=== PATIENT | male | born 1955 | race Caucasian/White ===

== ENCOUNTER 2018-03-24 18:37 | Inpatient (IN) ==
[2018-03-24] MEDS ORDERED: SODIUM CHLORIDE 0.9% 1,000 ML IV STA (19:26)
[2018-03-24] MEDS ORDERED: methylPREDNISolone SOD SUC 125 MG/2 ML VIAL IV STA (19:26)
[2018-03-24] MEDS ORDERED: ALBUTEROL/IPRATROPIUM 3 ML NEB RESP TX STA (19:26)
[2018-03-24 20:16] LABS: Basophils # 0.1 10*3/uL (0.0-0.2); Basophils % 0.9 % (0.0-0.8); Eosinophils # 0.1 10*3/uL (0.0-0.87); Eosinophils % 1.3 % (0.00-10.9); Hematocrit 46.9 VOL% (42.0-52.0); Hemoglobin 16.5 GM/DL (14.0-18.0); Immature Granulocytes % 0.4 %; Immature Granulocytes Absolute 0.03 #; Lymphocytes % 28.6 % (21.2-54.2); Mean Corpuscular HGB Conc 35.2 GM/DL (32-36); Mean Corpuscular Hemoglobin 34 PG (27-34); Mean Corpuscular Volume 97.3 FL (87-102); Mean Platelet Volume 9.5 FL (9.6-12.0); Monocytes # 0.4 10*3/uL (0.11-0.8); Monocytes % 5.5 % (1.7-12.7); Neutrophils # 4.3 10*3/uL (1.4-7.4); Neutrophils % 63.3 % (38.7-73.9); Platelet Count 211 T/CUMM (130-400); Red Blood Count 4.82 MC/CUMM (3.8-5.5); Red Cell Distribution Width 15.8 % (9.3-17.3); White Blood Count 6.9 T/CUMM (4-12)
[2018-03-24 20:29] LABS: INR 0.9; PT Patient Result 9.9 SECS
[2018-03-24 20:43] LABS: Albumin 3.4 G/DL (3.4-5.0); Bilirubin,Total 1.3 MG/DL (0.2-1.0); Calcium 8.9 MG/DL (8.5-10.1); Osmolality,Calculated 282.8 MOS/KG (273-304); Potassium 4.2 MMOL/L (3.5-5.1); Total Protein 6.7 G/DL (6.4-8.3)
[2018-03-24] MEDS ORDERED: IBUPROFEN 100 MG/5 ML UDCUP PO STA (21:56)
[2018-03-24 21:57] LABS: Apearance,Urine CLEAR (Clear); Bilirubin,Urine Negative (Negative); Blood, Urine Small mg/dL (Negative); Glucose,Urine (UA) Negative (Negative); Ketones,Urine Negative (Negative); Mucus,Urine Occasional /LPF (Occasional); Nitrite,Urine Negative (Negative); Protein,Urine Negative; RBC,Urine <1 /HPF (0-4); Urine Color Yellow (Yellow); Urine Specific Gravity 1.006 (1.001-1.035); Urine Urobilinogen < 2.0 EU/DL (0.2-1.0); WBC,Urine <1 /HPF (0-6)
[2018-03-24 22:05] LABS: Barbiturates Screen,Urine Negative (Negative); Benzodiazepines Screen,Urine Negative (Negative); Cannabinoid Screen,Urine Negative (Negative); Opiate Screen,Urine Negative (Negative); Phencyclidine Screen,Urine Negative (Negative)
[2018-03-24] MEDS ORDERED: ONDANSETRON 4 MG/2 ML VIAL IV PRN (22:30)
[2018-03-24] MEDS ORDERED: LACTULOSE 20 GM/30 ML UDCUP PO PRN (22:30)
[2018-03-24] MEDS ORDERED: MORPHINE 4 MG/1 ML VIAL IV PRN (22:30)
[2018-03-24] MEDS ORDERED: DEXTROSE 50% 25 GM/50 ML VIAL IV PRN (22:48)
[2018-03-24 22:52] LABS: Risk Ratio 3.89; VLDL CHOLESTEROL 26.2 MG/DL
[2018-03-24 22:57] LABS: ABG Base Excess -3.9 MMOL/L (-2.5-2.5); ABG HCO3 21.1 MMOL/L (20-26); ABG Oxygen Saturation 92.1 % (95-100); ABG PCO2 38.8 MM HG (35-48); ABG PH 7.349 (7.35-7.45); ABG PO2 66.3 MM HG (80-95); ABG TCO2 18.2 MMOL/L (23-27)
[2018-03-25] MEDS: LORazepam 2 MG/1 ML VIAL IV PRN ×3 (00:25→21:25)
[2018-03-25] MEDS: SODIUM CHLORIDE 0.9% 1,000 ML IV SCH ×2 (00:25→12:35)
[2018-03-25] MEDS: diphenhydrAMINE CAP 25 MG CAPSULE PO PRN ×2 (00:26→21:24)
[2018-03-25 07:01] LABS: Hematocrit 42.5 VOL% (42.0-52.0); Hemoglobin 14.9 GM/DL (14.0-18.0); Immature Granulocytes % 0.5 %; Immature Granulocytes Absolute 0.02 #; Lymphocytes # 0.4 10*3/uL (1.4-4.0); Lymphocytes % 10.3 % (21.2-54.2); Mean Corpuscular HGB Conc 35.1 GM/DL (32-36); Mean Corpuscular Hemoglobin 34 PG (27-34); Mean Corpuscular Volume 97.5 FL (87-102); Mean Platelet Volume 9.3 FL (9.6-12.0); Monocytes % 0.7 % (1.7-12.7); Neutrophils # 3.8 10*3/uL (1.4-7.4); Neutrophils % 88.5 % (38.7-73.9); Platelet Count 193 T/CUMM (130-400); Red Blood Count 4.36 MC/CUMM (3.8-5.5); Red Cell Distribution Width 15.6 % (9.3-17.3); White Blood Count 4.3 T/CUMM (4-12)
[2018-03-25 07:19] LABS: Albumin 2.8 G/DL (3.4-5.0); Bilirubin,Total 1.7 MG/DL (0.2-1.0); Calcium 8.3 MG/DL (8.5-10.1); Osmolality,Calculated 286.5 MOS/KG (273-304); Potassium 4.2 MMOL/L (3.5-5.1)
[2018-03-25] MEDS: ALBUTEROL/IPRATROPIUM 3 ML NEB RESP TX PRN ×2 (08:38→21:30)
[2018-03-25] MEDS ORDERED: ALBUTEROL 2.5 MG/3 ML NEB RESP TX PRN (09:10)
[2018-03-25] MEDS: FOLIC ACID 1 MG TABLET PO SCH ×2 (09:30→21:24)
[2018-03-25] MEDS: chlordiazePOXIDE 10 MG CAPSULE PO SCH ×3 (09:30→21:24)
[2018-03-25] MEDS: PANTOPRAZOLE 40 MG VIAL IV SCH ×2 (09:35→21:25)
[2018-03-25] MEDS: cefTRIAXone 1,000 MG in SYRINGE 1 EACH IV SCH (10:46)
[2018-03-25] MEDS: AZITHROMYCIN INJ 500 MG in SODIUM CHLORIDE 0.9% 250 ML IV SCH (10:47)
[2018-03-25] MEDS: ASPIRIN EC 81 MG TABLET PO SCH (12:05)
[2018-03-25] MEDS: NICOTINE 21 MG/24 HR PATCH TRANSDERM PRN (13:45)
[2018-03-25] MEDS: BENZONATATE 100 MG CAPSULE PO SCH ×2 (15:07→21:24)
[2018-03-25] MEDS ORDERED: PRAVASTATIN 20 MG TABLET PO SCH (21:00)
[2018-03-25] MEDS ORDERED: ALPRAZolam 0.25 MG TABLET PO SCH (21:00)
[2018-03-25] MEDS: guaiFENesin/DM ER 600-30 MG TABLET PO SCH (21:24)
[2018-03-25] MEDS: THEOPHYLLINE ER 300 MG TABLET PO SCH (21:24)
[2018-03-25] MEDS: PRAVASTATIN 20 MG TABLET PO SCH (21:27)
[2018-03-25] MEDS: METOPROLOL SUCCINATE XL 25 MG TABLET PO SCH (23:03)
[2018-03-26] MEDS: SODIUM CHLORIDE 0.9% 1,000 ML IV SCH ×4 (02:49→20:05)
[2018-03-26 04:34] LABS: Basophils % 0.2 % (0.0-0.8); Eosinophils % 0.3 % (0.00-10.9); Hematocrit 38.2 VOL% (42.0-52.0); Hemoglobin 13.1 GM/DL (14.0-18.0); Immature Granulocytes % 0.5 %; Immature Granulocytes Absolute 0.03 #; Lymphocytes # 1.4 10*3/uL (1.4-4.0); Lymphocytes % 22.2 % (21.2-54.2); Mean Corpuscular HGB Conc 34.3 GM/DL (32-36); Mean Corpuscular Hemoglobin 34 PG (27-34); Mean Corpuscular Volume 98.7 FL (87-102); Mean Platelet Volume 9.4 FL (9.6-12.0); Monocytes # 0.3 10*3/uL (0.11-0.8); Monocytes % 4.8 % (1.7-12.7); Neutrophils # 4.7 10*3/uL (1.4-7.4); Platelet Count 147 T/CUMM (130-400); Red Blood Count 3.87 MC/CUMM (3.8-5.5); Red Cell Distribution Width 15.6 % (9.3-17.3); White Blood Count 6.5 T/CUMM (4-12)
[2018-03-26 04:58] LABS: Calcium 8.1 MG/DL (8.5-10.1); Osmolality,Calculated 285.8 MOS/KG (273-304); Potassium 3.5 MMOL/L (3.5-5.1)
[2018-03-26 05:15] LABS: Albumin 2.6 G/DL (3.4-5.0); Bilirubin,Direct 0.16 MG/DL (0.0-0.20); Bilirubin,Indirect 0.9 MG/DL (0.0-1.0); Bilirubin,Total 1.1 MG/DL (0.2-1.0); Total Protein 4.9 G/DL (6.4-8.3)
[2018-03-26] MEDS: LORazepam 2 MG/1 ML VIAL IV PRN ×2 (08:43→21:17)
[2018-03-26] MEDS: guaiFENesin/DM ER 600-30 MG TABLET PO SCH ×2 (09:30→21:17)
[2018-03-26] MEDS: BENZONATATE 100 MG CAPSULE PO SCH ×3 (09:30→21:17)
[2018-03-26] MEDS: FOLIC ACID 1 MG TABLET PO SCH ×2 (09:30→21:17)
[2018-03-26] MEDS: ASPIRIN EC 81 MG TABLET PO SCH (09:30)
[2018-03-26] MEDS: PANTOPRAZOLE 40 MG VIAL IV SCH ×2 (09:30→21:18)
[2018-03-26] MEDS: THEOPHYLLINE ER 300 MG TABLET PO SCH ×2 (09:30→21:17)
[2018-03-26] MEDS: chlordiazePOXIDE 10 MG CAPSULE PO SCH ×3 (09:30→21:17)
[2018-03-26] MEDS: FLUTICASONE 50 MCG NASAL SPRAY 16 GM BOTTLE BOTH NARES SCH (09:31)
[2018-03-26] MEDS: cefTRIAXone 1,000 MG in SYRINGE 1 EACH IV SCH (09:31)
[2018-03-26] MEDS: AZITHROMYCIN INJ 500 MG in SODIUM CHLORIDE 0.9% 250 ML IV SCH (09:32)
[2018-03-26] MEDS: METOPROLOL SUCCINATE XL 25 MG TABLET PO SCH ×2 (10:25→22:49)
[2018-03-26] MEDS: ALBUTEROL/IPRATROPIUM 3 ML NEB RESP TX PRN (13:24)
[2018-03-26] MEDS: PRAVASTATIN 20 MG TABLET PO SCH (21:16)
[2018-03-26] MEDS: diphenhydrAMINE CAP 25 MG CAPSULE PO PRN (21:17)
[2018-03-27 02:46] LABS: Basophils % 0.4 % (0.0-0.8); Eosinophils # 0.1 10*3/uL (0.0-0.87); Eosinophils % 1.5 % (0.00-10.9); Hematocrit 40.3 VOL% (42.0-52.0); Hemoglobin 13.7 GM/DL (14.0-18.0); Immature Granulocytes % 0.4 %; Immature Granulocytes Absolute 0.02 #; Lymphocytes # 1.3 10*3/uL (1.4-4.0); Lymphocytes % 23.7 % (21.2-54.2); Mean Corpuscular Hemoglobin 33 PG (27-34); Mean Corpuscular Volume 98.3 FL (87-102); Mean Platelet Volume 9.7 FL (9.6-12.0); Monocytes # 0.3 10*3/uL (0.11-0.8); Neutrophils # 3.7 10*3/uL (1.4-7.4); Platelet Count 172 T/CUMM (130-400); Red Cell Distribution Width 15.5 % (9.3-17.3); White Blood Count 5.5 T/CUMM (4-12)
[2018-03-27 02:57] LABS: Calcium 8.2 MG/DL (8.5-10.1); Potassium 3.6 MMOL/L (3.5-5.1)
[2018-03-27 03:02] LABS: Albumin 2.7 G/DL (3.4-5.0); Bilirubin,Direct 0.12 MG/DL (0.0-0.20); Bilirubin,Indirect 0.7 MG/DL (0.0-1.0); Bilirubin,Total 0.8 MG/DL (0.2-1.0); Total Protein 5.5 G/DL (6.4-8.3)
[2018-03-27] MEDS: SODIUM CHLORIDE 0.9% 1,000 ML IV SCH ×2 (04:15→11:12)
[2018-03-27] MEDS: PANTOPRAZOLE 40 MG VIAL IV SCH ×2 (09:19→22:11)
[2018-03-27] MEDS: cefTRIAXone 1,000 MG in SYRINGE 1 EACH IV SCH (09:23)
[2018-03-27] MEDS: FLUTICASONE 50 MCG NASAL SPRAY 16 GM BOTTLE BOTH NARES SCH (09:27)
[2018-03-27] MEDS ORDERED: CLOPIDOGREL 75 MG TABLET PO SCH (11:30)
[2018-03-27] MEDS: LORazepam 2 MG/1 ML VIAL IV PRN (11:44)
[2018-03-27] MEDS ORDERED: LIDOCAINE 1% 20 ML VIAL ONE (14:51)
[2018-03-27] MEDS ORDERED: HEPARIN/NACL 0.9% 2 UNITS/ML 500 ML IV ONE (14:51)
[2018-03-27] MEDS ORDERED: fentaNYL 100 MCG/2 ML VIAL ONE ×2 (14:53→15:02)
[2018-03-27] MEDS ORDERED: MIDAZOLAM 2 MG/2 ML VIAL ONE ×2 (14:53→15:02)
[2018-03-27] MEDS ORDERED: HEPARIN 5,000 UNIT/1 ML VIAL ONE (15:08)
[2018-03-27] MEDS ORDERED: ISOPROTERENOL 1 MG/5 ML VIAL IV ONE (15:22)
[2018-03-27] MEDS: ASPIRIN EC 81 MG TABLET PO SCH (16:38)
[2018-03-27] MEDS: FOLIC ACID 1 MG TABLET PO SCH ×2 (16:39→22:12)
[2018-03-27] MEDS: guaiFENesin/DM ER 600-30 MG TABLET PO SCH ×2 (16:39→22:11)
[2018-03-27] MEDS: chlordiazePOXIDE 10 MG CAPSULE PO SCH ×3 (16:39→22:12)
[2018-03-27] MEDS: BENZONATATE 100 MG CAPSULE PO SCH ×3 (16:40→22:13)
[2018-03-27] MEDS: THEOPHYLLINE ER 300 MG TABLET PO SCH ×2 (16:41→22:12)
[2018-03-27] MEDS: METOPROLOL SUCCINATE XL 25 MG TABLET PO SCH ×2 (16:41→22:13)
[2018-03-27] MEDS: AZITHROMYCIN 250 MG TABLET PO SCH (17:45)
[2018-03-27] MEDS: PRAVASTATIN 20 MG TABLET PO SCH (22:12)
[2018-03-27] MEDS: ENOXAPARIN 30 MG/0.3 ML SYRINGE SUBCUT SCH (22:13)
[2018-03-28 03:31] LABS: Basophils % 0.6 % (0.0-0.8); Eosinophils # 0.2 10*3/uL (0.0-0.87); Eosinophils % 3.7 % (0.00-10.9); Hematocrit 41.1 VOL% (42.0-52.0); Hemoglobin 14.1 GM/DL (14.0-18.0); Immature Granulocytes % 0.2 %; Immature Granulocytes Absolute 0.01 #; Lymphocytes # 1.3 10*3/uL (1.4-4.0); Lymphocytes % 26.2 % (21.2-54.2); Mean Corpuscular HGB Conc 34.3 GM/DL (32-36); Mean Corpuscular Hemoglobin 34 PG (27-34); Mean Corpuscular Volume 97.6 FL (87-102); Mean Platelet Volume 10.5 FL (9.6-12.0); Monocytes # 0.3 10*3/uL (0.11-0.8); Monocytes % 6.2 % (1.7-12.7); Neutrophils # 3.1 10*3/uL (1.4-7.4); Neutrophils % 63.1 % (38.7-73.9); Platelet Count 113 T/CUMM (130-400); Red Blood Count 4.21 MC/CUMM (3.8-5.5); Red Cell Distribution Width 15.6 % (9.3-17.3); White Blood Count 4.9 T/CUMM (4-12)
[2018-03-28 03:57] LABS: Platelet Estimate Decreased
[2018-03-28 04:08] LABS: Calcium 8.6 MG/DL (8.5-10.1); Osmolality,Calculated 279.3 MOS/KG (273-304); Potassium 3.3 MMOL/L (3.5-5.1)
[2018-03-28] MEDS ORDERED: POTASSIUM CHLORIDE 20 MEQ TABLET PO ONE (07:01)
[2018-03-28] MEDS: AZITHROMYCIN 250 MG TABLET PO SCH (08:43)
[2018-03-28] MEDS: chlordiazePOXIDE 10 MG CAPSULE PO SCH ×3 (08:44→21:37)
[2018-03-28] MEDS: guaiFENesin/DM ER 600-30 MG TABLET PO SCH ×2 (08:44→21:38)
[2018-03-28] MEDS: ASPIRIN EC 81 MG TABLET PO SCH (08:44)
[2018-03-28] MEDS: BENZONATATE 100 MG CAPSULE PO SCH ×3 (08:44→21:39)
[2018-03-28] MEDS: FOLIC ACID 1 MG TABLET PO SCH ×2 (08:44→21:39)
[2018-03-28] MEDS: THEOPHYLLINE ER 300 MG TABLET PO SCH ×2 (08:44→21:39)
[2018-03-28] MEDS: PANTOPRAZOLE 40 MG VIAL IV SCH ×2 (08:45→21:39)
[2018-03-28] MEDS: cefTRIAXone 1,000 MG in SYRINGE 1 EACH IV SCH (08:45)
[2018-03-28] MEDS: FLUTICASONE 50 MCG NASAL SPRAY 16 GM BOTTLE BOTH NARES SCH (08:55)
[2018-03-28] MEDS: METOPROLOL SUCCINATE XL 25 MG TABLET PO SCH ×2 (08:55→21:38)
[2018-03-28] MEDS: LORazepam 2 MG/1 ML VIAL IV PRN (18:22)
[2018-03-28] MEDS: NICOTINE 21 MG/24 HR PATCH TRANSDERM PRN (21:36)
[2018-03-28] MEDS: ENOXAPARIN 30 MG/0.3 ML SYRINGE SUBCUT SCH (21:36)
[2018-03-28] MEDS: PRAVASTATIN 20 MG TABLET PO SCH (21:37)
[2018-03-29] MEDS: SODIUM CHLORIDE 0.9% 1,000 ML IV SCH ×2 (09:09→16:51)
[2018-03-29] MEDS ORDERED: SODIUM CHLORIDE 0.9% 250 ML IV ONE (09:14)
[2018-03-29] MEDS: PANTOPRAZOLE 40 MG VIAL IV SCH ×2 (09:15→21:34)
[2018-03-29] MEDS: FOLIC ACID 1 MG TABLET PO SCH ×2 (09:16→21:34)
[2018-03-29] MEDS: AZITHROMYCIN 250 MG TABLET PO SCH (09:16)
[2018-03-29] MEDS: BENZONATATE 100 MG CAPSULE PO SCH ×3 (09:16→21:33)
[2018-03-29] MEDS: chlordiazePOXIDE 10 MG CAPSULE PO SCH ×3 (09:16→21:33)
[2018-03-29] MEDS: ASPIRIN EC 81 MG TABLET PO SCH (09:16)
[2018-03-29] MEDS: THEOPHYLLINE ER 300 MG TABLET PO SCH ×2 (09:16→21:32)
[2018-03-29] MEDS: guaiFENesin/DM ER 600-30 MG TABLET PO SCH ×2 (09:16→21:33)
[2018-03-29] MEDS: cefTRIAXone 1,000 MG in SYRINGE 1 EACH IV SCH (09:17)
[2018-03-29] MEDS: METOPROLOL SUCCINATE XL 25 MG TABLET PO SCH ×2 (09:36→21:35)
[2018-03-29] MEDS: FLUTICASONE 50 MCG NASAL SPRAY 16 GM BOTTLE BOTH NARES SCH (09:36)
[2018-03-29 12:13] LABS: Albumin 2.8 G/DL (3.4-5.0); Bilirubin,Total 0.9 MG/DL (0.2-1.0); Calcium 8.6 MG/DL (8.5-10.1); Osmolality,Calculated 279.4 MOS/KG (273-304); Potassium 4.4 MMOL/L (3.5-5.1); Total Protein 5.9 G/DL (6.4-8.3)
[2018-03-29] MEDS: ALBUTEROL/IPRATROPIUM 3 ML NEB RESP TX PRN (13:57)
[2018-03-29] MEDS: PRAVASTATIN 20 MG TABLET PO SCH (21:33)
[2018-03-29] MEDS: ENOXAPARIN 30 MG/0.3 ML SYRINGE SUBCUT SCH (21:34)
[2018-03-29] MEDS: diphenhydrAMINE CAP 25 MG CAPSULE PO PRN (21:34)
[2018-03-30] MEDS: AZITHROMYCIN 250 MG TABLET PO SCH (09:43)
[2018-03-30] MEDS: chlordiazePOXIDE 10 MG CAPSULE PO SCH (09:44)
[2018-03-30] MEDS: FOLIC ACID 1 MG TABLET PO SCH (09:44)
[2018-03-30] MEDS: THEOPHYLLINE ER 300 MG TABLET PO SCH (09:44)
[2018-03-30] MEDS: guaiFENesin/DM ER 600-30 MG TABLET PO SCH (09:44)
[2018-03-30] MEDS: ASPIRIN EC 81 MG TABLET PO SCH (09:45)
[2018-03-30] MEDS: FLUTICASONE 50 MCG NASAL SPRAY 16 GM BOTTLE BOTH NARES SCH (09:46)
[2018-03-30] MEDS: BENZONATATE 100 MG CAPSULE PO SCH (09:46)
[2018-03-30] MEDS: METOPROLOL SUCCINATE XL 25 MG TABLET PO SCH (09:55)
[2018-03-30] MEDS: PANTOPRAZOLE 40 MG VIAL IV SCH (09:56)
[2018-03-30 10:26] LABS: S. Pneumo Serotype 1 6.9 mcg/mL (>=2.3); S. Pneumo Serotype 10A 12.2 mcg/mL (>=2.9); S. Pneumo Serotype 11A 1.4 mcg/mL (>=2.4); S. Pneumo Serotype 12F 0.6 mcg/mL (>=0.6); S. Pneumo Serotype 14 3.1 mcg/mL (>=7.0); S. Pneumo Serotype 15B 6.3 mcg/mL (>=3.3); S. Pneumo Serotype 18C 1.7 mcg/mL (>=3.3); S. Pneumo Serotype 19A 25.3 mcg/mL (>=17.1); S. Pneumo Serotype 19F 19.1 mcg/mL (>=15.0); S. Pneumo Serotype 2 4.4 mcg/mL (>=1.0); S. Pneumo Serotype 22F 41.5 mcg/mL (>=7.2); S. Pneumo Serotype 23F 49.4 mcg/mL (>=8.0); S. Pneumo Serotype 3 3.4 mcg/mL (>=1.8); S. Pneumo Serotype 33F 2.9 mcg/mL (>=1.7); S. Pneumo Serotype 6B 6.9 mcg/mL (>=4.7); S. Pneumo Serotype 7F 13.4 mcg/mL (>=3.2); S. Pneumo Serotype 8 3.5 mcg/mL (>=2.9); S. Pneumo Serotype 9N 5.6 mcg/mL (>=9.2); S. Pneumo Serotype 9V 7.3 mcg/mL (>=2.6)
[2018-03-30 11:34] VITALS: BP 100/56
[2018-03-30] MEDS: SODIUM CHLORIDE 0.9% 1,000 ML IV SCH (12:24)
== END 2018-03-30 13:18 | DRG 273 ==
LOC: EDUNIT# → EDBD → N.ED 18:37 → N.EDINP 22:31 → SUATTDRO 22:31 → N.TELES 23:08
PROVIDERS: ADMIT Hospitalist; ATTEND Internal Medicine

== ENCOUNTER 2018-07-19 21:19 | Inpatient (IN) ==
[2018-07-19] MEDS ORDERED: LEVALBUTEROL 1.25 MG/3 ML NEB RESP TX STA (22:33)
[2018-07-19] MEDS ORDERED: methylPREDNISolone SOD SUC 125 MG/2 ML VIAL IV STA (22:33)
[2018-07-19] MEDS ORDERED: SODIUM CHLORIDE 0.9% 500 ML IV STA (22:33)
[2018-07-19] MEDS ORDERED: ONDANSETRON 4 MG/2 ML VIAL IV STA (22:33)
[2018-07-19 22:38] LABS: Basophils % 0.5 % (0.0-0.8); Eosinophils % 0.5 % (0.00-10.9); Hematocrit 38.2 VOL% (42.0-52.0); Hemoglobin 13.5 GM/DL (14.0-18.0); Immature Granulocytes % 0.4 %; Immature Granulocytes Absolute 0.02 #; Lymphocytes # 0.4 10*3/uL (1.4-4.0); Lymphocytes % 6.4 % (21.2-54.2); Mean Corpuscular HGB Conc 35.3 GM/DL (32-36); Mean Corpuscular Hemoglobin 33 PG (27-34); Mean Corpuscular Volume 94.3 FL (87-102); Mean Platelet Volume 9.3 FL (9.6-12.0); Monocytes # 0.4 10*3/uL (0.11-0.8); Monocytes % 7.5 % (1.7-12.7); Neutrophils # 4.7 10*3/uL (1.4-7.4); Neutrophils % 84.7 % (38.7-73.9); Platelet Count 208 T/CUMM (130-400); Red Blood Count 4.05 MC/CUMM (3.8-5.5); Red Cell Distribution Width 14.1 % (9.3-17.3); White Blood Count 5.6 T/CUMM (4-12)
[2018-07-19 22:45] LABS: PT Patient Result 10.5 SECS
[2018-07-19 22:53] LABS: Albumin 3.4 G/DL (3.4-5.0); Bilirubin,Total 1.3 MG/DL (0.2-1.0); Calcium 8.7 MG/DL (8.5-10.1); Osmolality,Calculated 277.5 MOS/KG (273-304); Potassium 4.1 MMOL/L (3.5-5.1); Total Protein 6.4 G/DL (6.4-8.3)
[2018-07-20] MEDS ORDERED: CEFTAROLINE 600 MG in SODIUM CHLORIDE 0.9% 100 ML IV STA (00:32)
[2018-07-20 02:04] LABS: Apearance,Urine CLEAR (Clear); Bilirubin,Urine Negative (Negative); Blood, Urine Negative (Negative); Glucose,Urine (UA) Negative (Negative); Ketones,Urine Negative (Negative); Nitrite,Urine Negative (Negative); Protein,Urine Negative; Urine Color Yellow (Yellow); Urine Specific Gravity 1.032 (1.001-1.035); Urine Urobilinogen < 2.0 EU/DL (0.2-1.0); WBC,Urine <1 /HPF (0-6)
[2018-07-20] MEDS: SODIUM CHLORIDE 0.9% 1,000 ML IV SCH ×2 (04:15→23:02)
[2018-07-20] MEDS: MELATONIN 3 MG TABLET PO SCH ×2 (05:18→20:38)
[2018-07-20] MEDS: traMADol 50 MG TABLET PO PRN (06:12)
[2018-07-20] MEDS: MECLIZINE 25 MG TABLET PO PRN (06:12)
[2018-07-20] MEDS ORDERED: ALBUTEROL 2.5 MG/3 ML NEB RESP TX SCH (07:00)
[2018-07-20] MEDS: guaiFENesin/DM ER 600-30 MG TABLET PO SCH ×3 (10:16→20:37)
[2018-07-20] MEDS: MULTIVITAMIN (CENTRUM) TABLET PO SCH ×2 (10:16→17:19)
[2018-07-20] MEDS: predniSONE 20 MG TABLET PO SCH (10:16)
[2018-07-20] MEDS: PANTOPRAZOLE 40 MG TABLET PO SCH (10:16)
[2018-07-20] MEDS: GABAPENTIN 100 MG CAPSULE PO SCH ×2 (10:16→20:38)
[2018-07-20] MEDS: ATENOLOL 25 MG TABLET PO SCH (10:17)
[2018-07-20] MEDS: BENZONATATE 100 MG CAPSULE PO SCH ×3 (10:17→20:38)
[2018-07-20] MEDS: ONDANSETRON 4 MG/2 ML VIAL IV PRN (10:17)
[2018-07-20] MEDS: CLORAZEPATE 3.75 MG TABLET PO SCH ×4 (10:18→20:37)
[2018-07-20] MEDS: NICOTINE 21 MG/24 HR PATCH TRANSDERM SCH (10:18)
[2018-07-20] MEDS: FLUTICASONE 50 MCG NASAL SPRAY 16 GM BOTTLE BOTH NARES SCH (10:19)
[2018-07-20] MEDS ORDERED: ALBUTEROL 2.5 MG/3 ML NEB RESP TX PRN (11:19)
[2018-07-20] MEDS ORDERED: CEFTAROLINE 600 MG in SODIUM CHLORIDE 0.9% 100 ML IV SCH (13:00)
[2018-07-20] MEDS: ALBUTEROL/IPRATROPIUM 3 ML NEB RESP TX SCH ×2 (16:12→20:13)
[2018-07-20] MEDS: SUCRALFATE 1 GM/10 ML UDCUP PO SCH ×3 (16:40→20:38)
[2018-07-20] MEDS: LEVOFLOXACIN INJ 750 MG in PREMIX 1 EACH IV SCH (17:20)
[2018-07-20] MEDS: PIPERACILLIN/TAZOBACTAM 3,375 MG in SODIUM CHLORIDE 0.9% 100 ML IV SCH ×2 (20:11→22:59)
[2018-07-20] MEDS: MONTELUKAST 10 MG TABLET PO SCH (20:45)
[2018-07-20] MEDS: ROSUVASTATIN 10 MG TABLET PO SCH (20:45)
[2018-07-20] MEDS: BUDESONIDE/FORMOTEROL 160-4.5 INHALER 6 GM INH SCH (20:47)
[2018-07-20] MEDS ORDERED: BUDESONIDE/FORMOTEROL 160-4.5 INHALER 6 GM INH SCH (21:00)
[2018-07-20] MEDS: ACETAMINOPHEN 325 MG TABLET PO PRN (23:03)
[2018-07-21] MEDS: ALBUTEROL/IPRATROPIUM 3 ML NEB RESP TX SCH ×4 (02:57→19:52)
[2018-07-21 05:52] LABS: Basophils % 0.3 % (0.0-0.8); Hematocrit 36.7 VOL% (42.0-52.0); Hemoglobin 12.2 GM/DL (14.0-18.0); Lymphocytes # 0.3 10*3/uL (1.4-4.0); Mean Corpuscular HGB Conc 33.2 GM/DL (32-36); Mean Corpuscular Hemoglobin 32 PG (27-34); Mean Corpuscular Volume 97.6 FL (87-102); Mean Platelet Volume 9.6 FL (9.6-12.0); Monocytes # 0.4 10*3/uL (0.11-0.8); Monocytes % 12.1 % (1.7-12.7); Neutrophils # 2.6 10*3/uL (1.4-7.4); Neutrophils % 77.6 % (38.7-73.9); Platelet Count 191 T/CUMM (130-400); Red Blood Count 3.76 MC/CUMM (3.8-5.5); Red Cell Distribution Width 14.8 % (9.3-17.3); White Blood Count 3.3 T/CUMM (4-12)
[2018-07-21 06:15] LABS: Albumin 3.1 G/DL (3.4-5.0); Bilirubin,Total 1.1 MG/DL (0.2-1.0); Calcium 8.6 MG/DL (8.5-10.1); Osmolality,Calculated 282.3 MOS/KG (273-304); Total Protein 6.5 G/DL (6.4-8.3)
[2018-07-21] MEDS: ACETAMINOPHEN 325 MG TABLET PO PRN ×2 (06:36→17:16)
[2018-07-21] MEDS: SUCRALFATE 1 GM/10 ML UDCUP PO SCH ×4 (12:21→21:32)
[2018-07-21] MEDS: BENZONATATE 100 MG CAPSULE PO SCH ×3 (12:29→21:32)
[2018-07-21] MEDS: ATENOLOL 25 MG TABLET PO SCH (12:29)
[2018-07-21] MEDS: GABAPENTIN 100 MG CAPSULE PO SCH ×2 (12:29→21:32)
[2018-07-21] MEDS: guaiFENesin/DM ER 600-30 MG TABLET PO SCH ×2 (12:30→21:37)
[2018-07-21] MEDS: PANTOPRAZOLE 40 MG TABLET PO SCH (12:30)
[2018-07-21] MEDS: traMADol 50 MG TABLET PO PRN (12:30)
[2018-07-21] MEDS: BUDESONIDE/FORMOTEROL 160-4.5 INHALER 6 GM INH SCH ×2 (12:31→21:34)
[2018-07-21] MEDS: FLUTICASONE 50 MCG NASAL SPRAY 16 GM BOTTLE BOTH NARES SCH (12:32)
[2018-07-21] MEDS: NICOTINE 21 MG/24 HR PATCH TRANSDERM SCH (12:32)
[2018-07-21] MEDS: MULTIVITAMIN (CENTRUM) TABLET PO SCH (12:32)
[2018-07-21] MEDS: predniSONE 20 MG TABLET PO SCH (12:33)
[2018-07-21] MEDS: SODIUM CHLORIDE 0.9% 1,000 ML IV SCH (12:39)
[2018-07-21] MEDS: PIPERACILLIN/TAZOBACTAM 3,375 MG in SODIUM CHLORIDE 0.9% 100 ML IV SCH ×3 (12:42→21:40)
[2018-07-21] MEDS: CLORAZEPATE 3.75 MG TABLET PO SCH ×3 (12:43→21:32)
[2018-07-21] MEDS: ONDANSETRON 4 MG/2 ML VIAL IV PRN (16:04)
[2018-07-21] MEDS: MECLIZINE 25 MG TABLET PO PRN (16:04)
[2018-07-21] MEDS: LEVOFLOXACIN INJ 750 MG in PREMIX 1 EACH IV SCH (16:13)
[2018-07-21] MEDS: ROSUVASTATIN 10 MG TABLET PO SCH (21:32)
[2018-07-21] MEDS: MELATONIN 3 MG TABLET PO SCH (21:32)
[2018-07-21] MEDS: MONTELUKAST 10 MG TABLET PO SCH (21:32)
[2018-07-22] MEDS: ALBUTEROL/IPRATROPIUM 3 ML NEB RESP TX SCH ×4 (01:04→19:13)
[2018-07-22 05:05] LABS: Albumin 2.7 G/DL (3.4-5.0); Bilirubin,Total 0.9 MG/DL (0.2-1.0); Calcium 7.8 MG/DL (8.5-10.1); Osmolality,Calculated 276.7 MOS/KG (273-304); Potassium 3.6 MMOL/L (3.5-5.1)
[2018-07-22] MEDS ORDERED: SODIUM CHLORIDE 0.9% 500 ML IV ONE (05:07)
[2018-07-22] MEDS: traMADol 50 MG TABLET PO PRN ×2 (05:29→18:25)
[2018-07-22] MEDS: SODIUM CHLORIDE 0.9% 1,000 ML IV SCH ×2 (05:47→21:06)
[2018-07-22] MEDS: PIPERACILLIN/TAZOBACTAM 3,375 MG in SODIUM CHLORIDE 0.9% 100 ML IV SCH ×2 (06:33→13:57)
[2018-07-22] MEDS: SUCRALFATE 1 GM/10 ML UDCUP PO SCH ×4 (09:29→21:07)
[2018-07-22] MEDS: CLORAZEPATE 3.75 MG TABLET PO SCH ×3 (09:29→21:08)
[2018-07-22] MEDS: BENZONATATE 100 MG CAPSULE PO SCH ×3 (09:29→21:07)
[2018-07-22] MEDS: ATENOLOL 25 MG TABLET PO SCH (09:30)
[2018-07-22] MEDS: NICOTINE 21 MG/24 HR PATCH TRANSDERM SCH (09:30)
[2018-07-22] MEDS: MULTIVITAMIN (CENTRUM) TABLET PO SCH (09:30)
[2018-07-22] MEDS: GABAPENTIN 100 MG CAPSULE PO SCH ×2 (09:30→21:07)
[2018-07-22] MEDS: predniSONE 20 MG TABLET PO SCH (09:30)
[2018-07-22] MEDS: guaiFENesin/DM ER 600-30 MG TABLET PO SCH ×2 (09:30→21:07)
[2018-07-22] MEDS: PANTOPRAZOLE 40 MG TABLET PO SCH (09:30)
[2018-07-22] MEDS: BUDESONIDE/FORMOTEROL 160-4.5 INHALER 6 GM INH SCH ×3 (09:31→21:09)
[2018-07-22] MEDS: FLUTICASONE 50 MCG NASAL SPRAY 16 GM BOTTLE BOTH NARES SCH (09:31)
[2018-07-22] MEDS: DORNASE ALFA 2.5 MG/2.5 ML VIAL RESP TX SCH ×2 (09:37→19:13)
[2018-07-22] MEDS: LEVOFLOXACIN INJ 750 MG in PREMIX 1 EACH IV SCH (12:10)
[2018-07-22 13:32] LABS: Apearance,Urine CLEAR (Clear); Bilirubin,Urine Negative (Negative); Blood, Urine Negative (Negative); Glucose,Urine (UA) Negative (Negative); Ketones,Urine Negative (Negative); Mucus,Urine Occasional /LPF (Occasional); Nitrite,Urine Negative (Negative); Protein,Urine Negative; RBC,Urine 1 /HPF (0-4); Urine Color Yellow (Yellow); Urine Specific Gravity 1.019 (1.001-1.035); Urine Urobilinogen < 2.0 EU/DL (0.2-1.0); WBC,Urine 2 /HPF (0-6)
[2018-07-22] MEDS: MECLIZINE 25 MG TABLET PO PRN (14:00)
[2018-07-22] MEDS ORDERED: SODIUM CHLORIDE 0.9% 2,500 ML IV ONE (15:31)
[2018-07-22] MEDS: IBUPROFEN 400 MG TABLET PO SCH (16:04)
[2018-07-22] MEDS: MELATONIN 3 MG TABLET PO SCH (21:07)
[2018-07-22] MEDS: OSELTAMIVIR 75 MG CAPSULE PO SCH (21:07)
[2018-07-22] MEDS: ROSUVASTATIN 10 MG TABLET PO SCH (21:07)
[2018-07-22] MEDS: ENOXAPARIN 40 MG/0.4 ML SYRINGE SUBCUT SCH (21:07)
[2018-07-22] MEDS: MONTELUKAST 10 MG TABLET PO SCH (21:07)
[2018-07-23] MEDS: ALBUTEROL/IPRATROPIUM 3 ML NEB RESP TX SCH ×4 (00:38→19:11)
[2018-07-23] MEDS: IBUPROFEN 400 MG TABLET PO SCH ×3 (00:51→18:48)
[2018-07-23 06:00] LABS: Basophils % 0.4 % (0.0-0.8); Hematocrit 32.3 VOL% (42.0-52.0); Hemoglobin 10.7 GM/DL (14.0-18.0); Immature Granulocytes % 0.4 %; Immature Granulocytes Absolute 0.01 #; Lymphocytes # 0.6 10*3/uL (1.4-4.0); Lymphocytes % 24.9 % (21.2-54.2); Mean Corpuscular HGB Conc 33.1 GM/DL (32-36); Mean Corpuscular Hemoglobin 32 PG (27-34); Mean Corpuscular Volume 97.9 FL (87-102); Mean Platelet Volume 9.9 FL (9.6-12.0); Monocytes # 0.3 10*3/uL (0.11-0.8); Monocytes % 11.1 % (1.7-12.7); Neutrophils # 1.4 10*3/uL (1.4-7.4); Neutrophils % 63.2 % (38.7-73.9); Platelet Count 171 T/CUMM (130-400); Red Cell Distribution Width 14.6 % (9.3-17.3); White Blood Count 2.3 T/CUMM (4-12)
[2018-07-23 06:23] LABS: Calcium 7.5 MG/DL (8.5-10.1); Osmolality,Calculated 288.8 MOS/KG (273-304); Potassium 3.7 MMOL/L (3.5-5.1)
[2018-07-23] MEDS: PANTOPRAZOLE 40 MG TABLET PO SCH ×2 (08:18→08:54)
[2018-07-23] MEDS: SUCRALFATE 1 GM/10 ML UDCUP PO SCH ×2 (08:18→08:53)
[2018-07-23] MEDS: BENZONATATE 100 MG CAPSULE PO SCH (08:18)
[2018-07-23] MEDS: GABAPENTIN 100 MG CAPSULE PO SCH (08:19)
[2018-07-23] MEDS: CLORAZEPATE 3.75 MG TABLET PO SCH ×3 (08:19→21:26)
[2018-07-23] MEDS: guaiFENesin/DM ER 600-30 MG TABLET PO SCH ×2 (08:19→21:26)
[2018-07-23] MEDS: FLUTICASONE 50 MCG NASAL SPRAY 16 GM BOTTLE BOTH NARES SCH (08:19)
[2018-07-23] MEDS: ATENOLOL 25 MG TABLET PO SCH (08:19)
[2018-07-23] MEDS: OSELTAMIVIR 75 MG CAPSULE PO SCH ×2 (08:19→21:26)
[2018-07-23] MEDS: predniSONE 20 MG TABLET PO SCH ×2 (08:19→08:54)
[2018-07-23] MEDS: MULTIVITAMIN (CENTRUM) TABLET PO SCH (08:19)
[2018-07-23] MEDS: BUDESONIDE/FORMOTEROL 160-4.5 INHALER 6 GM INH SCH (08:20)
[2018-07-23] MEDS: NICOTINE 21 MG/24 HR PATCH TRANSDERM SCH (08:20)
[2018-07-23] MEDS: DORNASE ALFA 2.5 MG/2.5 ML VIAL RESP TX SCH ×2 (08:38→19:12)
[2018-07-23] MEDS ORDERED: DOCUSATE SODIUM 100 MG CAPSULE PO PRN (10:36)
[2018-07-23] MEDS ORDERED: BISACODYL 5 MG TABLET PO ONE (10:37)
[2018-07-23] MEDS: SODIUM CHLORIDE 0.9% 1,000 ML IV SCH (10:49)
[2018-07-23] MEDS: LEVOFLOXACIN INJ 750 MG in PREMIX 1 EACH IV SCH (12:00)
[2018-07-23] MEDS: MECLIZINE 25 MG TABLET PO PRN (13:25)
[2018-07-23] MEDS: ASPIRIN EC 81 MG TABLET PO SCH (13:51)
[2018-07-23] MEDS: BUDESONIDE 0.5 MG/2 ML NEB RESP TX SCH ×2 (14:33→19:11)
[2018-07-23] MEDS: ARFORMOTEROL 15 MCG/2 ML NEB RESP TX SCH ×2 (14:33→19:11)
[2018-07-23] MEDS: ACETAMINOPHEN 325 MG TABLET PO PRN (19:15)
[2018-07-23] MEDS: ROSUVASTATIN 10 MG TABLET PO SCH (21:26)
[2018-07-23] MEDS: ENOXAPARIN 40 MG/0.4 ML SYRINGE SUBCUT SCH (21:26)
[2018-07-23] MEDS: MELATONIN 3 MG TABLET PO SCH (21:26)
[2018-07-23] MEDS: MONTELUKAST 10 MG TABLET PO SCH (21:26)
[2018-07-24] MEDS: IBUPROFEN 400 MG TABLET PO SCH ×2 (00:27→09:42)
[2018-07-24] MEDS: ALBUTEROL/IPRATROPIUM 3 ML NEB RESP TX SCH ×4 (01:27→19:20)
[2018-07-24] MEDS: SODIUM CHLORIDE 0.9% 1,000 ML IV SCH (02:33)
[2018-07-24] MEDS: ARFORMOTEROL 15 MCG/2 ML NEB RESP TX SCH ×2 (07:30→19:20)
[2018-07-24] MEDS: BUDESONIDE 0.5 MG/2 ML NEB RESP TX SCH ×2 (07:35→19:20)
[2018-07-24] MEDS: DORNASE ALFA 2.5 MG/2.5 ML VIAL RESP TX SCH (08:15)
[2018-07-24] MEDS: ASPIRIN EC 81 MG TABLET PO SCH (09:43)
[2018-07-24] MEDS: CLOPIDOGREL 75 MG TABLET PO SCH (09:48)
[2018-07-24] MEDS: CLORAZEPATE 3.75 MG TABLET PO SCH ×3 (09:48→20:53)
[2018-07-24] MEDS: OSELTAMIVIR 75 MG CAPSULE PO SCH ×2 (09:49→20:53)
[2018-07-24] MEDS: guaiFENesin/DM ER 600-30 MG TABLET PO SCH ×2 (09:49→20:53)
[2018-07-24] MEDS: MULTIVITAMIN (CENTRUM) TABLET PO SCH (09:49)
[2018-07-24] MEDS: ATENOLOL 25 MG TABLET PO SCH (09:51)
[2018-07-24] MEDS: FLUTICASONE 50 MCG NASAL SPRAY 16 GM BOTTLE BOTH NARES SCH (09:52)
[2018-07-24] MEDS: NICOTINE 21 MG/24 HR PATCH TRANSDERM SCH (09:56)
[2018-07-24] MEDS: GABAPENTIN 100 MG CAPSULE PO SCH ×2 (14:10→20:53)
[2018-07-24] MEDS: LEVOFLOXACIN INJ 750 MG in PREMIX 1 EACH IV SCH (16:52)
[2018-07-24] MEDS: MELATONIN 3 MG TABLET PO SCH (20:53)
[2018-07-24] MEDS: ENOXAPARIN 40 MG/0.4 ML SYRINGE SUBCUT SCH (20:53)
[2018-07-24] MEDS: ROSUVASTATIN 10 MG TABLET PO SCH (20:53)
[2018-07-24] MEDS: MONTELUKAST 10 MG TABLET PO SCH (20:53)
[2018-07-24] MEDS: ONDANSETRON 4 MG/2 ML VIAL IV PRN (20:54)
[2018-07-24] MEDS: MECLIZINE 25 MG TABLET PO PRN (21:36)
[2018-07-25] MEDS: ALBUTEROL/IPRATROPIUM 3 ML NEB RESP TX SCH ×4 (01:31→19:00)
[2018-07-25] MEDS: ONDANSETRON 4 MG/2 ML VIAL IV PRN (07:05)
[2018-07-25] MEDS: BUDESONIDE 0.5 MG/2 ML NEB RESP TX SCH (07:10)
[2018-07-25] MEDS: ARFORMOTEROL 15 MCG/2 ML NEB RESP TX SCH (07:10)
[2018-07-25] MEDS: OSELTAMIVIR 75 MG CAPSULE PO SCH ×2 (10:36→20:18)
[2018-07-25] MEDS: GABAPENTIN 100 MG CAPSULE PO SCH ×2 (10:37→20:18)
[2018-07-25] MEDS: ASPIRIN EC 81 MG TABLET PO SCH (10:37)
[2018-07-25] MEDS: guaiFENesin/DM ER 600-30 MG TABLET PO SCH ×2 (10:38→20:17)
[2018-07-25] MEDS: CLORAZEPATE 3.75 MG TABLET PO SCH ×3 (10:38→20:17)
[2018-07-25] MEDS: MULTIVITAMIN (CENTRUM) TABLET PO SCH (10:39)
[2018-07-25] MEDS: ACETAMINOPHEN 325 MG TABLET PO PRN (10:39)
[2018-07-25] MEDS: LEVOFLOXACIN 750 MG TABLET PO SCH (10:39)
[2018-07-25] MEDS: FLUTICASONE 50 MCG NASAL SPRAY 16 GM BOTTLE BOTH NARES SCH (10:52)
[2018-07-25] MEDS: ATENOLOL 25 MG TABLET PO SCH (10:53)
[2018-07-25] MEDS: NICOTINE 21 MG/24 HR PATCH TRANSDERM SCH (10:53)
[2018-07-25] MEDS: MECLIZINE 25 MG TABLET PO PRN ×2 (11:02→20:17)
[2018-07-25] MEDS: MELATONIN 3 MG TABLET PO SCH (20:17)
[2018-07-25] MEDS: ROSUVASTATIN 10 MG TABLET PO SCH (20:17)
[2018-07-25] MEDS: ENOXAPARIN 40 MG/0.4 ML SYRINGE SUBCUT SCH (20:17)
[2018-07-25] MEDS: MONTELUKAST 10 MG TABLET PO SCH (20:18)
[2018-07-26] MEDS: ALBUTEROL/IPRATROPIUM 3 ML NEB RESP TX SCH (07:21)
[2018-07-26] MEDS: NICOTINE 21 MG/24 HR PATCH TRANSDERM SCH (09:02)
[2018-07-26] MEDS: OSELTAMIVIR 75 MG CAPSULE PO SCH (09:07)
[2018-07-26] MEDS: LEVOFLOXACIN 750 MG TABLET PO SCH (09:07)
[2018-07-26] MEDS: MULTIVITAMIN (CENTRUM) TABLET PO SCH (09:07)
[2018-07-26] MEDS: GABAPENTIN 100 MG CAPSULE PO SCH (09:08)
[2018-07-26] MEDS: ASPIRIN EC 81 MG TABLET PO SCH (09:08)
[2018-07-26] MEDS: CLORAZEPATE 3.75 MG TABLET PO SCH (09:08)
[2018-07-26] MEDS: guaiFENesin/DM ER 600-30 MG TABLET PO SCH (09:09)
[2018-07-26] MEDS: CLOPIDOGREL 75 MG TABLET PO SCH (09:09)
[2018-07-26] MEDS: ATENOLOL 25 MG TABLET PO SCH (09:12)
[2018-07-26] MEDS: FLUTICASONE 50 MCG NASAL SPRAY 16 GM BOTTLE BOTH NARES SCH (09:18)
[2018-07-26] MEDS: MECLIZINE 25 MG TABLET PO PRN (09:18)
[2018-07-26] MEDS: ACETAMINOPHEN 325 MG TABLET PO PRN (10:58)
[2018-07-26 11:12] VITALS: BP 105/88
[2018-07-26] MEDS: ONDANSETRON 4 MG/2 ML VIAL IV PRN (12:34)
== END 2018-07-26 13:35 | disposition home health service (06) | DRG 191 ==
LOC: EDBD → EDUNIT# → N.EDINP 21:19 → N.ED 21:19 → N.4E 07-20 03:17 → N.3E 07-22 17:06
PROVIDERS: ADMIT Internal Medicine; ATTEND Internal Medicine